=== PATIENT | female | born 1990 | race Two or more races ===

== ENCOUNTER 2025-03-03 13:47 | Outpatient (REF) | payer MEDICAID, SELFPAY ==
--- NOTE | 2025-03-03 14:02 | EMG_ITS ---
Chief complaint: Right hand pain and numbness Reason for referral: Evaluate for Carpal Tunnel Syndrome Referred by: Aaron MENDEZ Procedure done: Right upper extremity NCS/EMG Precautions and/or limitations: None Greenlandic speaking, seen with abrasives sales representative. The limb temperature was monitored continuously and remained between 32-36 degrees C during the performance of the NCS. Nerve Conduction Studies Anti Sensory Summary Table ?Stim Site NR Onset (ms) Norm Onset (ms) Peak (ms) Norm Peak (ms) O-P Amp (?V) Norm O-P Amp Site1 Site2 Delta-0 (ms) Dist (cm) Rudy (m/s) Norm Rudy (m/s) Right Median Anti Sensory (2nd Digit) Wrist ? 2.8 3.7 <3.6 52.0 >10 Wrist 2nd Digit 2.8 14.0 50 Right Radial Anti Sensory (Thumb) Forearm ? 1.4 2.0 <3.1 35.2 Forearm Thumb 1.4 0.0 Right Ulnar Anti Sensory (5th Digit) Wrist ? 2.3 2.9 <3.7 60.6 >15.0 Wrist 5th Digit 2.3 14.0 61 Motor Summary Table ?Stim Site NR Onset (ms) Norm Onset (ms) O-P Amp (mV) Norm O-P Amp iAmp (mV) Amp (1st) (%) Site1 Site2 Delta-0 (ms) Dist (cm) Rudy (m/s) Norm Rudy (m/s) Right Median Motor (Abd Poll Brev) Wrist ? 4.1 <3.9 10.9 >4.5 13.2 100.0 Elbow Wrist 3.2 19.0 59 >45 Elbow ? 7.3 9.7 11.9 89.0 Right Ulnar Motor (Abd Dig Minimi) Wrist ? 2.6 <3.0 5.5 >5 7.5 100.0 B Elbow Wrist 2.7 16.0 59 >45 B Elbow ? 5.3 5.2 7.3 94.5 A Elbow B Elbow 1.3 10.0 77 >45 A Elbow ? 6.6 5.3 7.6 96.4 EMG ?Side Muscle Nerve Root Ins Act Fibs Psw Amp Dur Poly Recrt Int Pat Comment Right 1stDorInt Ulnar C8-T1 Nml Nml Nml Nml Nml 0 Nml Complete Right FlexCarRad Median C6-7 Nml Nml Nml Nml Nml 0 Nml Complete Right Biceps Musculocut C5-6 Nml Nml Nml Nml Nml 0 Nml Complete Right Triceps Radial C6-7-8 Nml Nml Nml Nml Nml 0 Nml Complete Right Deltoid Axillary C5-6 Nml Nml Nml Nml Nml 0 Nml Complete FINDINGS: Right median motor nerve showed prolonged distal latency, normal amplitude and normal conduction velocity. Right median sensory nerve showed prolonged peak latency. All other nerves tested were within normal. Concentric needle EMG was performed in selected muscles of the upper extremity. Study did not reveal signs of electric abnormalities as shown in the table above. IMPRESSION: 1. This is an abnormal study. 2. There is electrodiagnostic evidence for right moderate-severe median neuropathy at the wrist, consistent with carpal tunnel syndrome. 3. There is no electrodiagnostic evidence for ulnar neuropathy, brachial plexopathy, or cervical radiculopathy. Thank you for your kind referral. Mia Corbin MD, JERSON Board Certified, [place] [employer] and [employer] (ABPMR) Board Certified, [place] Board [employer] Electrodiagnostic Medicine (ABEM) CODIN [id number] MTDD
== END 2025-03-03 13:48 | disposition home or self-care (01) ==
LOC: HO.NEURO 13:47
DX: R20.0 Anesthesia of skin (principal); R20.2 Paresthesia of skin
CPT/HCPCS: 95886; 95909

== ENCOUNTER → 2025-03-03 14:02 | Outpatient (BNV) | payer MEDICAID, SELFPAY | PROVIDERS: Visit Provider Physical Medicine & Rehabilitation | DX: G56.01 Carpal tunnel syndrome, right upper limb (principal) | CPT/HCPCS: 95886; 95909 ==

== ENCOUNTER 2025-03-08 14:46 | Outpatient (AMB) | payer MEDICAID, SELFPAY ==
--- NOTE | 2025-03-08 14:58 | A.OFFVIS_ITS ---
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 Today she reports she has difficulty with things like gripping, grasping and squeezing. Reports she feels heaviness in the right hand and complete numbnesses. Worse at night, most of the time at night her numbness increases. Numbness and tingling in the 1st, 2nd and 3rd digits. Hx of migraines, prescribed meds for this. Says she was told she has diabetes as well but never gave her anything for it. I checked her referral but could not see anything on this. She says she is on a diet to treat this and is waiting on a call back for this. EMG/NCS done on 03/03/2025 IMPRESSION: 1. This is an abnormal study. 2. There is electrodiagnostic evidence for right moderate-severe median neuropathy at the wrist, consistent with carpal tunnel syndrome. 3. There is no electrodiagnostic evidence for ulnar neuropathy, brachial plexopathy, or cervical radiculopathy. 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 Today she reports she has difficulty with things like gripping, grasping and squeezing. Reports she feels heaviness in the right hand and complete numbnesses. Worse at night, most of the time at night her numbness increases. Numbness and tingling in the 1st, 2nd and 3rd digits. Hx of migraines, prescribed meds for this. Says she was told she has diabetes as well but never gave her anything for it. I checked her referral but could not see anything on this. She says she is on a diet to treat this and is waiting on a call back for this. Patient has had an A1c drawn, but reports she does not know what this is. EMG/NCS done on 03/03/2025 IMPRESSION: 1. This is an abnormal study. 2. There is electrodiagnostic evidence for right moderate-severe median neuropathy at the wrist, consistent with carpal tunnel syndrome. 3. There is no electrodiagnostic evidence for ulnar neuropathy, brachial plexopathy, or cervical radiculopathy. Review of Systems Const All systems reviewed & are unremarkable except as noted in HPI and below Physical Exam Vital Signs: BMI result Body Mass Index 29.3 Extrem Other: Neuro: Normal sensation of the tips of all digits of right hands in the office today No thenar or intrinsic wasting. Good APB muscle firing and good finger cross. Vascular: Capillary refill brisk. ROM: Patient can make a fist and extend all their digits. Skin: No lacerations or abrasions noted. General: No ecchymosis. No erythema or evidence of infection. Assessment & Plan Assessment & Plan (1) Right carpal tunnel syndrome: Code(s): G56.01 - Carpal tunnel syndrome, right upper limb Category: Medical Plan 1. Right carpal tunnel syndrome Symptoms intermittent, daily Patient is educated about this condition Patient is educated about the typical treatment course At this time, patient is informed that the preferred treatment for carpal tunnel syndrome is surgical intervention However, as the patient's last A1c is unknown, we can not proceed with getting signed up for surgery at this time Patient is educated that she should obtain her last A1c value from her primary care doctor, and once she has this information, she should reach out to our office to get booked for right carpal tunnel release I educated the patient about the condition. I discussed both operative and nonoperative treatment options. The patient would like to proceed with surgery. The risks and benefits of operative treatment were discussed with the patient and the patient wishes to proceed with surgery. These risks include, but are not limited to, risk of damage to blood vessels, nerves, tendons, infection, recurrence, incomplete relief of preoperative symptoms, persistent pain, possible need for further surgery, and the risks associated with regional blocks and/or anesthesia. Plan is to take the patient to the operating room at some point in the next few weeks for the following procedures: 1. Right carpal tunnel release under local anesthesia All of the preoperative paperwork including the consent was discussed today. All of the patient's questions were answered in the clinic today. The patient understands that they will be in contact with our surgical physician assistant to discuss scheduling their procedure. Patient reports diabetes, last A1c unknown, we will obtain this value prior to scheduling for surgery Denies blood thinners, asthma, heart issues, lung issues, kidney issues, or current smoking. Patient understands this and is amenable to this plan Coding Level of Care Code New Pt Level 4 (98073) Diagnoses Right carpal tunnel syndrome G56.01
[2025-03-08 15:30] VITALS: BMI 29.3
--- OUTSIDE RECORDS SUMMARY | 2025-03-08 18:29 | XMS_ITS | Clinical Summary ---
Author Organization [facility] Address [address] [place] [address] Care Team Providers Care Tobacco Scrap Sifter Name Role Phone Unavailable Primary Care Provider Unavailabl e Encounters Date Type Department Care Team Description 12/13/2024 Population Health Risk Score [facility] (C3) Department [address] [address] [place] [address] Provider, Population Health Generic from Last 3 Months Social History Tobacco Use Types Packs/Day Years Used Date Smoking Tobacco: Never Assessed Comments Unknown Sex and Gender Information Value Date Recorded Sex Assigned at Not on file Legal Sex Female 9:22 PM EDT Gender Identity Not on file Sexual Orientation Not on file Plan of Treatment Health Maintenance Due Date Last Done Comments Depression Screening 1989 Lipid Panel 1989 SDOH Screening 1989 Disability Screening 1989 Alcohol/Substance Use Screening 2001 Tobacco Screening 2001 Family Planning (PISQ) 02/02/2004 HPV Vaccines (1 - 3-dose series) 02/02/2004 Hepatitis C Screening 2007 Pap Smear 2010 Cervical Cancer Screening 2019 HPV/Cotest 2019 COVID-19 Vaccine (3 - 2024-2 6 season) 2025 09/07/2020, 08/27/2020 Influenza Vaccine (#1) 2025 03/24/2024 DTaP/Tdap/Td Vaccines (2 - T d or Tdap) 11/18/2033 11/19/2023 Zoster Vaccines (1 of 2) 2039 RSV Patients and Patients Aged 60 years or older (1 - 1-dose 75+ series) 02/02/2064 HIV Screening Completed 11/19/2023, 11/19/2023 Hepatitis B Vaccines Completed 12/22/2023, 11/19/2023, 05/31/2023 HIB Vaccines Aged Out No longer eligi ble based on patient's age to complete this topic Hepatitis A Vaccines Aged Out No long er eligible based on patient's age to complete this topic IPV Vaccines Aged Out No longer eligi ble based on patient's age to complete this topic Meningococcal B Vaccine Aged Out No l onger eligible based on patient's age to complete this topic Meningococcal Vaccine Aged Out No jag juani eligible based on patient's age to complete this topic Pneumococcal Vaccine: Pediatrics (0 to 5 Years) and At-Risk Patients (6 to 49) Years Aged Out No longer eligible b ased on patient's age to complete this topic RSV under 20 months Aged Out No longe r eligible based on patient's age to complete this topic Rotavirus Vaccines Aged Out No longer eligible based on patient's age to complete this topic
== END 2025-03-08 16:05 | disposition home or self-care (01) ==
LOC: HO.HOS 14:46
DX: G56.01 Carpal tunnel syndrome, right upper limb (principal)
CPT/HCPCS: 99204

== ENCOUNTER → 2025-03-08 14:46 | Outpatient (BNVA) | payer MEDICAID, SELFPAY | DX: G56.01 Carpal tunnel syndrome, right upper limb (principal) | CPT/HCPCS: 99212 ==